=== PATIENT | male | born 1950 | race Caucasian/White ===

== ENCOUNTER → 2019-03-06 14:18 | Outpatient (CLI) | payer MEDICARE, SELFPAY ==
--- NOTE | 2019-03-06 | DI.RAD.S_ITS ---
PROCEDURE: XR KNEE LT 3V INDICATIONS: ARTHRITIS OF LEFT KNEE TECHNIQUE: 3 views of the knee were acquired. COMPARISON: None. FINDINGS: Bones: No fractures or dislocations. No suspicious bony lesions. Moderate medial compartment degenerative joint space narrowing. Mild lateral facet patellofemoral joint osteoarthritic change also. Soft tissues: No joint effusion. No suspicious soft tissue calcifications. 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 The most prominent degree of degenerative changes at the medial compartment. Dictated by: Omar Muse M.D. on 03/06/2019 at 14:55 Approved by: Omar Muse M.D. on 03/06/2019 at 14:56
== END ==
PROVIDERS: Visit Provider Family Medicine
DX: M17.12 Unilateral primary osteoarthritis, left knee (principal)
CPT/HCPCS: 73562

== ENCOUNTER 2019-04-05 10:26 | Emergency (ER) | payer MEDICARE, SELFPAY ==
[2019-04-05 10:30] VITALS: BP 116/76; PULSE 75; RESP 18; TEMP 36.9; O2SAT 97; BMI 23.0
--- NOTE | 2019-04-05 10:32 | ED_ITS ---
HPI - Extremity Injury (Lower) General Chief Complaint: Extremity Problem,Nontraumatic Stated Complaint: left knee injury possible infection Time Seen by Provider: 04/05/19 10:26 Source: patient Mode of arrival: Ambulatory Limitations: no limitations History of Present Illness HPI Narrative: 68-year-old male nonsmoker without significant contributory medical history presents for evaluation of a large, painful bump behind his left knee. He denies any redness, warmth or systemic suspicion of infection such as fever, chills nor nausea or vomiting. He denies any significant recent injury but does state that he had injured his knee few months ago with a suspected meniscal injury. His pain is worse with motion and improves with rest. He denies numbness, tingling or weakness. MD complaint: leg injury Onset (ago): month(s) Place: home Severity: moderate Relieving factors: rest Exacerbating factors: weight bearing and movement Other symptoms: none Related Data Home Medications Medication Instructions Recorded Confirmed ACETAMINOPHEN ER - 650 mg PO Q6HP #0 05/14/12 (TYLENOL 8 HOUR~) OXYCODONE HCL (OXECTA (NOT 5 mg PO Q8HR #0 05/14/12 AVAILABLE)) Sennosides A and B (SENNA 1 tab PO QDAY #0 05/14/12 CONCENTRATE) aspirin 325 mg PO QDAY #0 05/14/12 docusate sodium 250 mg PO QDAY #0 05/14/12 meloxicam [Mobic] 15 mg PO QDAY #0 05/14/12 ondansetron HCl [Zofran] 4 mg PO Q6HP #0 05/14/12 gabapentin 300 mg PO TID 04/05/19 04/05/19 ketorolac 04/05/19 prednisolone acetate 04/05/19 Previous Rx's Medication Instructions Recorded ketorolac 10 mg PO Q6H PRN #14 tab 04/05/19 Allergies Allergy/AdvReac Type Severity Reaction Status Date / Time No Known Drug Allergies Allergy Verified 04/05/19 10:36 Review of Systems Constitutional Constitutional: Denies chills, Denies fatigue, Denies fever(s), Denies frequent falls, Denies lethargy and Denies weakness Eyes Eyes: Denies change in vision, Denies eye discharge, Denies irritation and Denies loss of vision ENT Ears, Nose, Mouth, and Throat: Denies change in voice, Denies dizziness, Denies neck pain, Denies sore throat and Denies throat swelling Cardiovascular Cardiovascular: Denies chest pain, Denies irregular heart rhythm, Denies lightheadedness, Denies palpitations, Denies dyspnea, Denies dyspnea on exertion and Denies orthopnea Respiratory Respiratory: Denies cough, Denies dyspnea, Denies dyspnea on exertion and Denies wheezing Gastrointestinal Gastrointestinal: Denies abdominal pain, Denies change in bowel habits, Denies diarrhea, Denies nausea and Denies vomiting Genitourinary Genitourinary: Denies hematuria, Denies flank pain, Denies urinary incontinence and Denies urinary urgency Musculoskeletal Musculoskeletal: Denies back pain, Reports limited range of motion, Denies muscle weakness, Denies neck pain, Denies numbness and Denies tingling Integumentary/Breasts Skin/Breast: Denies pruritus, Denies erythema, Denies rash and Denies wounds Neurologic Neurologic: Denies behavioral changes, Denies confusion, Denies dizziness, Denies frequent falls, Denies loss of vision, Denies numbness, Denies tingling and Denies weakness Psychiatric Psychiatric: Denies anxiety, Denies behavioral changes, Denies confusion, Denies depression, Denies homicidal ideation and Denies suicidal ideation Endocrine Endocrine: Denies fatigue, Denies flushing and Denies palpitations Hematologic/Lymphatic Hematologic/Lymphatic: Denies easy bruising Allergic/Immunologic Allergic/Immunologic: Denies urticaria, Denies throat swelling and Denies wheezing Exam Narrative Exam Narrative: GEN: AOx3 and in mild distress EYES: Pupils are equal, round, and reactive to light and accommodation. Extraoccular muscles are intact bilaterally. There is no subconjunctival hemorrhage or exudate. CHEST: Lungs are clear to auscultation bilaterally and free of wheezes, rales, or rhonchi. Heart rate is regular rhythm, there are no murmurs, clicks, rubs, or gallops. There is no chest wall tenderness. ABD: Abdomen is soft and nontender. There is no guarding or rebound. Bowel sounds are normal in all 4 quadrants. There is no mass or organomegaly. EXT: Full but painful range of motion of left knee with a palpable mass behind left knee. No redness, warmth or effusion. No calf tenderness or swelling. Negative Homans sign. SKIN: Warm, pink, and dry. No erythema or rash Initial Vital Signs Initial Vital Signs: Vital Signs Temperature 98.4 F 04/05/19 10:30 Pulse Rate 75 04/05/19 10:30 Respiratory Rate 18 04/05/19 10:30 Blood Pressure 116/76 04/05/19 10:30 Pulse Oximetry 97 04/05/19 10:30 Course Orders Ordered: ED Orders 04/05/19 10:34 US periph venous low extrem lt Stat 04/05/19 10:55 Basic Metabolic Panel Stat C-Reactive Protein Quant Stat Complete Blood Count AUTO DIFF Stat Erythrocyte Sedimentation Rate Stat Vital Signs Vital signs: Vital Signs - 8 hr 04/05/19 12:00 Pulse Rate 60 Respiratory Rate 18 Blood Pressure [Left Arm] 160/79 H Pulse Oximetry 95 MDM - Extremity Injury (Lower) Lab Data Result diagrams: 04/05/19 10:55 04/05/19 10:55 Labs: Lab Results 04/05/19 04/05/19 Range/Units 10:55 10:55 WBC 7.1 (4.5-11.0) X10^3/uL RBC 4.28 L (4.5-5.9) X10^6/uL Hgb 14.1 (13.5-17.5) g/dL Hct 40.8 L (41-53) % MCV 95.2 (80-100) fL MCH 33.0 (26-34) PG MCHC 34.6 (30-36) % RDW 13.7 (11.6-14.8) % Plt Count 343 (150-400) X10^3/uL Neut % (Auto) 73.6 (50-75) % Lymph % (Auto) 17.8 L (25-40) % Ell[place] % (Auto) 5.8 (3-14) % Eos % (Auto) 1.5 L (2-4) % Baso % (Auto) 1.3 (0-2) % Neut # (Auto) 5200 (0011-9566) /uL Lymph # (Auto) 1300 (4752-2443) /uL Ellsworth # (Auto) 400 (0-900) /uL Eos # (Auto) 100 (0-450) /uL Baso # (Auto) 100 (0-100) /uL ESR 10 (0-15) MM/HR Sodium 137 (137-145) mmol/L Potassium 4.1 (3.4-5.1) mmol/L Chloride 103 (98-107) mmol/L Carbon Dioxide 24 (22-32) mmol/L BUN 12 (9-20) mg/dL Creatinine 0.60 L (0.66-1.25) mg/dL Estimated GFR > 60.0 (>60) mL/min BUN/Creatinine Ratio 20.0 (6-22) Glucose 147 H (80-110) mg/dL Calcium 9.7 (8.4-10.2) mg/dL C-Reactive Protein < 0.5 (<1.0) mg/dL Imaging Data US - DVT: Radiologist's Impression: [address] [address] Ultrasound Report Signed Patient: Turner Vance [facility]#: [id number] : 3Acct:[id number] Age/Sex: 68 / MDate of Service: 04/05/19 Loc: ED Accession Number: [id number] Procedure: US perip venous low extrem lt Ordering Provider: Roberto Valadez D.O. PROCEDURE: US PERIP VENOUS LOW EXTREM LT INDICATIONS: LEFT KNEE PAIN TECHNIQUE: Real-time imaging, as well as color and pulse Doppler interrogation, were performed of the lower extremity deep veins from the inguinal ligament to the popliteal fossa. COMPARISON: None. FINDINGS: The common femoral, femoral and popliteal veins are normally compressible, and free of intraluminal thrombus. Color and pulse Doppler demonstrate normal phasic intraluminal flow. There is normal augmentation response to distal compression maneuver. A prominent Patel cyst is identified within the popliteal fossa. IMPRESSION: 1. No evidence of deep vein thrombosis of the left lower extremity. 2. Prominent Patel cyst. Dictated by: Yanick Marrero M.D. on 04/05/2019 at 10:16 Discharge Plan Departure Patient Disposition: Home Clinical Impression: Patel's cyst of knee Qualifiers: Laterality: left Qualified Code(s): M71.22 - Synovial cyst of popliteal space [Patel], left knee Discharge Date/Time: 04/05/19 12:11 Instructions: Bakers Cyst Activity Restrictions/Additional Instructions: *You have been diagnosed with [patel cyst left knee, possible meniscal involvement] *What to do: *Take medications as directed *Follow up with your primary care provider in 2-3 days, call for an appointment. Let them know you were seen in the Emergency Department and that we ask that you be seen in follow up *Return to ER if you should have any new, worsening or concerning symptoms Prescriptions: New ketorolac 10 mg tablet 10 mg PO Q6H PRN (Reason: pain) Qty: 14 RF: 0 No Action ACETAMINOPHEN ER - (TYLENOL 8 HOUR~) 650 mg PO Q6HP Qty: 0 RF: 0 aspirin 325 MG tablet 325 mg PO QDAY Qty: 0 RF: 0 docusate sodium 250 MG capsule 250 mg PO QDAY Qty: 0 RF: 0 meloxicam [Mobic] 15 MG tablet 15 mg PO QDAY Qty: 0 RF: 0 ondansetron HCl [Zofran] 4 MG tablet 4 mg PO Q6HP Qty: 0 RF: 0 OXYCODONE HCL (OXECTA (NOT AVAILABLE)) 5 mg PO Q8HR Qty: 0 RF: 0 Sennosides A and B (SENNA CONCENTRATE) 1 tab PO QDAY Qty: 0 RF: 0 prednisolone acetate 1 % drops,suspension RF: 0 gabapentin 300 mg capsule 300 mg PO TID RF: 0 ketorolac 0.4 % drops RF: 0 Referrals: [facility] [Outside] Felicity Hutchins MD [Physician] -
[2019-04-05 11:06] LABS: Add Manual Diff / Slide Review NO; Basophils Absolute Auto 100 /uL (0-100); Basophils Percent Auto 1.3 % (0-2); Eosinophils Absolute Auto 100 /uL (0-450); Eosinophils Percent Auto 1.5 % (2-4); Hematocrit 40.8 % (41-53); Hemoglobin 14.1 g/dL (13.5-17.5); Lymphocytes Absolute Auto 1300 /uL (1100-4500); Lymphocytes Percent Auto 17.8 % (25-40); Mean Corpuscular HGB Conc 34.6 % (30-36); Mean Corpuscular Volume 95.2 fL (80-100); Monocytes Absolute Auto 400 /uL (0-900); Monocytes Percent Auto 5.8 % (3-14); Neutrophils Absolute Auto 5200 /uL (1500-7000); Neutrophils Percent Auto 73.6 % (50-75); Platelet Count 343 X10^3/uL (150-400); Red Blood Cell Count 4.28 X10^6/uL (4.5-5.9); Red Cell Distribution Width 13.7 % (11.6-14.8); White Blood Cell Count 7.1 X10^3/uL (4.5-11.0)
[2019-04-05 11:20] LABS: Erythrocyte Sedimentation Rate 10 MM/HR (0-15)
[2019-04-05 11:21] LABS: Blood Urea Nitrogen 12 mg/dL (9-20); Calcium 9.7 mg/dL (8.4-10.2); Carbon Dioxide 24 mmol/L (22-32); Chloride 103 mmol/L (98-107); Estimated Glomerular Filt Rate > 60.0 mL/min (>60); Glucose 147 mg/dL (80-110); HEMOLYSIS 15 (0-50); Potassium 4.1 mmol/L (3.4-5.1); Sodium 137 mmol/L (137-145)
[2019-04-05 11:22] LABS: C-Reactive Protein Quant < 0.5 mg/dL (<1.0)
[2019-04-05 12:00] VITALS: BP 160/79; PULSE 60; RESP 18; O2SAT 95
== END 2019-04-05 12:11 | disposition home or self-care (01) ==
PROVIDERS: Emergency Provider Emergency Medicine
DX: M71.22 Synovial cyst of popliteal space [Baker], left knee (principal)
CPT/HCPCS: 36415; 80048; 85025; 85651; 86140; 93971; 99283; 99284

== ENCOUNTER → 2019-12-10 11:04 | Outpatient (CLI) | payer MEDICARE, SELFPAY ==
--- NOTE | 2019-12-10 | DI.MRI.S_ITS ---
PROCEDURE: MR HEAD/BRAIN WO/W CON INDICATIONS: Abnormal weight loss TECHNIQUE: Noncontrast axial T1 spin echo, axial T2 fast spin echo, sagittal and axial FLAIR, coronal T2 fast spin echo, axial gradient echo, axial diffusion and ADC through the brain. After the administration of contrast, axial and coronal T1 spin echo with fat saturation through the brain. COMPARISON: None. FINDINGS: Image quality: Excellent. CSF spaces: Basal cisterns are patent. No extra-axial fluid collections. Ventricles are normal in size and shape. Brain: No midline shift. No intracranial bleeds or masses. No abnormal intracranial enhancement. There is cerebral volume loss for age. There is periventricular white matter chronic small vessel ischemic change. The brainstem appears normal. Diffusion-weighted images demonstrate no acute ischemic insults. No chronic ischemic insults. Normal intravascular flow voids are present. Skull and face: Calvarial marrow is normal in signal. Orbits appear normal. Note is made of bilateral lens replacements. Sinuses: There is moderate to severe right-sided maxillary sinus mucosal thickening. Moderate mucosal thickening is seen within the ethmoid air cells. No abnormal fluid is seen within the mastoid air cells. IMPRESSION: Unremarkable intracranial study for age, without masses or abnormal enhancement. No findings of acute or subacute infarction can be seen. Paranasal sinus disease is seen, which is worst within the right maxillary sinus. Dictated by: Joe Chinchilla M.D. on 12/10/2019 at 11:46 Approved by: Joe Chinchilla M.D. on 12/10/2019 at 11:47
== END ==
PROVIDERS: PCP Family Medicine; Referring Provider Family Medicine; Visit Provider Family Medicine
DX: R63.4 Abnormal weight loss (principal); J32.8 Other chronic sinusitis
CPT/HCPCS: 70553

== ENCOUNTER → 2020-03-20 13:37 | Outpatient (CLI) | payer MEDICARE, SELFPAY ==
[2020-03-20] MEDS: COVID-19 VACC #1, MRNA(MOD) 100 MCG/0.5 ML VIAL IM (13:41)
== END ==
PROVIDERS: PCP Family Medicine; Visit Provider Internal Medicine
DX: Z23 Encounter for immunization (principal)
CPT/HCPCS: 0011A; 91301

== ENCOUNTER → 2020-04-16 12:27 | Outpatient (CLI) | payer MEDICARE, SELFPAY ==
[2020-04-16] MEDS: COVID-19 VACC #2, MRNA(MOD) 100 MCG/0.5 ML VIAL IM (12:32)
== END ==
PROVIDERS: PCP Family Medicine; Visit Provider Internal Medicine
DX: Z23 Encounter for immunization (principal)
CPT/HCPCS: 0012A; 91301

== ENCOUNTER → 2020-06-05 09:14 | Outpatient (CLI) | payer MEDICARE, SELFPAY ==
[2020-06-05 20:28] LABS: Alanine Aminotransferase 23 IU/L (<50); Albumin 4.6 g/dL (3.5-5.0); Albumin Globulin Ratio 1.5 (1.0-2.8); Alkaline Phosphatase 84 U/L (38-126); Aspartate Aminotransferase 38 IU/L (17-59); BUN Creatinine Ratio 22.7 (6-22); Bilirubin Total 0.4 mg/dL (0.2-1.3); Blood Urea Nitrogen 15 mg/dL (9-20); Calcium 10.2 mg/dL (8.4-10.2); Carbon Dioxide 28 mmol/L (22-32); Chloride 104 mmol/L (98-107); Estimated Glomerular Filt Rate > 60.0 mL/min (>60); Globulin 3.1 g/dL (1.7-4.1); Glucose 107 mg/dL (80-110); HEMOLYSIS < 15 (0-50); Potassium 4.4 mmol/L (3.4-5.1); Sodium 139 mmol/L (137-145); Total Protein 7.7 g/dL (6.3-8.2)
[2020-06-05 20:58] LABS: Prostate Specific Antigen 1.32 ng/mL (0.10-4.00)
[2020-06-12 06:36] LABS: Percent Free Testosterone 3.64 % (1.50-4.20); Testosterone Free 14.97 ng/dL (5.00-21.00); Testosterone Total 411.2 ng/dL (264.0-916.0)
== END ==
PROVIDERS: PCP Family Medicine; Visit Provider Family Medicine
DX: F41.9 Anxiety disorder, unspecified (principal); N40.0 Benign prostatic hyperplasia without lower urinary tract symptoms; I10 Essential (primary) hypertension
CPT/HCPCS: 80053; 84153; 84402; 84403; 84443

== ENCOUNTER → 2021-01-18 14:20 | Outpatient (CLI) | payer MEDICARE, SELFPAY ==
[2021-01-19 20:34] LABS: Basophils Absolute Auto 100 /uL (0-100); Basophils Percent Auto 1.1 % (0-2); Eosinophils Absolute Auto 400 /uL (0-450); Eosinophils Percent Auto 5.1 % (2-4); Hematocrit 35.6 % (41-53); Hemoglobin 11.9 g/dL (13.5-17.5); Lymphocytes Absolute Auto 2000 /uL (1100-4500); Mean Corpuscular HGB Conc 33.4 % (30-36); Mean Corpuscular Hemoglobin 31.9 PG (26-34); Mean Corpuscular Volume 95.4 fL (80-100); Monocytes Absolute Auto 700 /uL (0-900); Monocytes Percent Auto 9.4 % (3-14); Neutrophils Absolute Auto 4300 /uL (1500-7000); Neutrophils Percent Auto 57.4 % (50-75); Platelet Count 491 X10^3/uL (150-400); Red Blood Cell Count 3.73 X10^6/uL (4.5-5.9); Red Cell Distribution Width 12.9 % (11.6-14.8); White Blood Cell Count 7.4 X10^3/uL (4.5-11.0)
[2021-01-19 21:12] LABS: Add Manual Diff / Slide Review SLIDE REVIEW
[2021-01-19 21:13] LABS: RBC Morphology Normal Morphology
== END ==
PROVIDERS: PCP Family Medicine; Visit Provider Family Medicine
DX: M54.9 Dorsalgia, unspecified (principal); G89.29 Other chronic pain; T81.40XA Infection following a procedure, unspecified, initial encounter
CPT/HCPCS: 85025

== ENCOUNTER → 2021-01-28 13:06 | Outpatient (CLI) | payer MEDICARE, SELFPAY ==
[2021-01-28 19:24] LABS: Add Manual Diff / Slide Review NO; Basophils Absolute Auto 100 /uL (0-100); Eosinophils Absolute Auto 300 /uL (0-450); Eosinophils Percent Auto 4.7 % (2-4); Hematocrit 38.9 % (41-53); Hemoglobin 13.2 g/dL (13.5-17.5); Lymphocytes Absolute Auto 1900 /uL (1100-4500); Lymphocytes Percent Auto 27.7 % (25-40); Mean Corpuscular HGB Conc 33.9 % (30-36); Mean Corpuscular Hemoglobin 32.4 PG (26-34); Mean Corpuscular Volume 95.5 fL (80-100); Monocytes Absolute Auto 600 /uL (0-900); Monocytes Percent Auto 8.9 % (3-14); Neutrophils Absolute Auto 4000 /uL (1500-7000); Neutrophils Percent Auto 57.7 % (50-75); Platelet Count 356 X10^3/uL (150-400); Red Blood Cell Count 4.07 X10^6/uL (4.5-5.9); Red Cell Distribution Width 13.3 % (11.6-14.8)
[2021-01-28 19:37] LABS: BUN Creatinine Ratio 21.5 (6-22); Blood Urea Nitrogen 14 mg/dL (9-20); Calcium 9.9 mg/dL (8.4-10.2); Carbon Dioxide 30 mmol/L (22-32); Chloride 101 mmol/L (98-107); Estimated Glomerular Filt Rate > 60.0 mL/min (>60); Glucose 92 mg/dL (80-110); HEMOLYSIS < 15 (0-50); Potassium 4.3 mmol/L (3.4-5.1); Sodium 137 mmol/L (137-145)
== END ==
PROVIDERS: Internal Medicine Infectious Disease; PCP Family Medicine
DX: M54.9 Dorsalgia, unspecified (principal); T81.49XA Infection following a procedure, other surgical site, initial encounter; G89.29 Other chronic pain
CPT/HCPCS: 80048; 85025

== ENCOUNTER → 2021-02-04 13:19 | Outpatient (CLI) | payer MEDICARE, SELFPAY ==
[2021-02-04 19:18] LABS: Add Manual Diff / Slide Review NO; Basophils Absolute Auto 0 /uL (0-100); Basophils Percent Auto 0.8 % (0-2); Eosinophils Absolute Auto 300 /uL (0-450); Eosinophils Percent Auto 6.1 % (2-4); Hematocrit 37.4 % (41-53); Hemoglobin 12.9 g/dL (13.5-17.5); Lymphocytes Absolute Auto 1300 /uL (1100-4500); Lymphocytes Percent Auto 22.7 % (25-40); Mean Corpuscular HGB Conc 34.4 % (30-36); Mean Corpuscular Hemoglobin 32.2 PG (26-34); Mean Corpuscular Volume 93.5 fL (80-100); Monocytes Absolute Auto 500 /uL (0-900); Monocytes Percent Auto 8.4 % (3-14); Neutrophils Absolute Auto 3400 /uL (1500-7000); Platelet Count 324 X10^3/uL (150-400); Red Cell Distribution Width 13.3 % (11.6-14.8); White Blood Cell Count 5.6 X10^3/uL (4.5-11.0)
[2021-02-04 19:23] LABS: BUN Creatinine Ratio 19.1 (6-22); Blood Urea Nitrogen 13 mg/dL (9-20); Calcium 10.4 mg/dL (8.4-10.2); Carbon Dioxide 31 mmol/L (22-32); Chloride 103 mmol/L (98-107); Estimated Glomerular Filt Rate > 60.0 mL/min (>60); Glucose 91 mg/dL (80-110); HEMOLYSIS 20 (0-50); Potassium 4.4 mmol/L (3.4-5.1); Sodium 137 mmol/L (137-145)
== END ==
PROVIDERS: Internal Medicine Infectious Disease; PCP Family Medicine
DX: M54.9 Dorsalgia, unspecified (principal); T81.49XA Infection following a procedure, other surgical site, initial encounter; G89.29 Other chronic pain
CPT/HCPCS: 80048; 85025

== ENCOUNTER → 2021-03-29 09:06 | Outpatient (CLI) | payer MEDICARE, SELFPAY ==
[2021-03-29 19:10] LABS: Alanine Aminotransferase 15 IU/L (<50); Albumin 4.3 g/dL (3.5-5.0); Albumin Globulin Ratio 1.4 (1.0-2.8); Alkaline Phosphatase 78 U/L (38-126); Aspartate Aminotransferase 26 IU/L (17-59); Bilirubin Total 0.4 mg/dL (0.2-1.3); Blood Urea Nitrogen 12 mg/dL (9-20); Calcium 9.7 mg/dL (8.4-10.2); Carbon Dioxide 31 mmol/L (22-32); Chloride 101 mmol/L (98-107); Cholesterol 206 mg/dL (140-199); Estimated Glomerular Filt Rate > 60.0 mL/min (>60); Gamma Glutamyl Transpeptidase 19 U/L (15-73); Glucose 110 mg/dL (80-110); HDL Cholesterol 66 mg/dL (40-60); HEMOLYSIS < 15 (0-50); LDL Cholesterol Calculated 127 mg/dL (<100); Potassium 4.8 mmol/L (3.4-5.1); Sodium 137 mmol/L (137-145); Total Protein 7.3 g/dL (6.3-8.2); Triglycerides 63 mg/dL (35-150)
[2021-03-29 19:32] LABS: Hematocrit 38.2 % (41-53); Hemoglobin 12.7 g/dL (13.5-17.5); Mean Corpuscular HGB Conc 33.2 % (30-36); Mean Corpuscular Hemoglobin 30.9 PG (26-34); Mean Corpuscular Volume 93.1 fL (80-100); Platelet Count 339 X10^3/uL (150-400); Red Blood Cell Count 4.11 X10^6/uL (4.5-5.9); Red Cell Distribution Width 14.1 % (11.6-14.8); White Blood Cell Count 5.2 X10^3/uL (4.5-11.0)
[2021-03-29 20:08] LABS: Neutrophils Absolute Manual 2652 /uL (3000-5900); RBC Morphology Normal Morphology; Total Cells Counted 100
== END ==
PROVIDERS: PCP Family Medicine; Visit Provider Family Medicine
DX: F10.20 Alcohol dependence, uncomplicated (principal); S99.912A Unspecified injury of left ankle, initial encounter; E78.5 Hyperlipidemia, unspecified; I10 Essential (primary) hypertension
CPT/HCPCS: 80053; 80061; 82977; 85025

== ENCOUNTER → 2021-06-14 08:20 | Outpatient (CLI) | payer MEDICARE, SELFPAY ==
[2021-06-14 09:48] LABS: Add Manual Diff / Slide Review NO; Basophils Absolute Auto 100 /uL (0-100); Basophils Percent Auto 0.8 % (0-2); Eosinophils Absolute Auto 200 /uL (0-450); Eosinophils Percent Auto 1.9 % (2-4); Hematocrit 38.4 % (41-53); Hemoglobin 13.3 g/dL (13.5-17.5); Lymphocytes Absolute Auto 1400 /uL (1100-4500); Lymphocytes Percent Auto 17.4 % (25-40); Mean Corpuscular HGB Conc 34.7 % (30-36); Mean Corpuscular Hemoglobin 33.2 PG (26-34); Mean Corpuscular Volume 95.6 fL (80-100); Monocytes Absolute Auto 600 /uL (0-900); Monocytes Percent Auto 7.2 % (3-14); Neutrophils Absolute Auto 5900 /uL (1500-7000); Neutrophils Percent Auto 72.7 % (50-75); Platelet Count 298 X10^3/uL (150-400); Red Blood Cell Count 4.01 X10^6/uL (4.5-5.9); Red Cell Distribution Width 14.7 % (11.6-14.8); White Blood Cell Count 8.1 X10^3/uL (4.5-11.0)
[2021-06-14 10:29] LABS: HEMOLYSIS < 15 (0-50); Iron 68 ug/dL (49-181)
[2021-06-14 10:40] LABS: Percent Iron Saturation 22 % (20-50); Total Iron Binding Capacity 316 ug/dL (261-462); Transferrin 248 mg/dL (206-381)
[2021-06-14 11:05] LABS: Ferritin 74 ng/mL (18-464)
== END ==
PROVIDERS: Physician Assistant; PCP Family Medicine; Referring Provider Family Medicine; Visit Provider Family Medicine
DX: J32.9 Chronic sinusitis, unspecified (principal); M25.572 Pain in left ankle and joints of left foot; D64.9 Anemia, unspecified
CPT/HCPCS: 36415; 82728; 83540; 83550; 85025

== ENCOUNTER → 2021-06-21 11:28 | Outpatient (CLI) | payer MEDICARE, SELFPAY ==
[2021-06-24 10:12] LABS: Fecal Immunochemical Test Negative (Negative)
== END ==
PROVIDERS: PCP Family Medicine; Visit Provider Physician Assistant
DX: Z12.11 Encounter for screening for malignant neoplasm of colon (principal); D64.9 Anemia, unspecified
CPT/HCPCS: 82274

== ENCOUNTER → 2021-07-19 10:46 | Outpatient (CLI) | payer MEDICARE, SELFPAY | PROVIDERS: PCP Family Medicine; Referring Provider Dermatology; Visit Provider Family Medicine | DX: T81.89XA Other complications of procedures, not elsewhere classified, initial encounter (principal); L97.825 Non-pressure chronic ulcer of other part of left lower leg with muscle involvement without evidence of necrosis; Z85.828 Personal history of other malignant neoplasm of skin; Z22.322 Carrier or suspected carrier of Methicillin resistant Staphylococcus aureus | CPT/HCPCS: 11042; 93922; 99204; 99213 ==

== ENCOUNTER → 2021-07-27 10:15 | Outpatient (CLI) | payer MEDICARE, SELFPAY | PROVIDERS: PCP Family Medicine; Referring Provider Family Medicine; Visit Provider Family Medicine | DX: T81.89XA Other complications of procedures, not elsewhere classified, initial encounter (principal); S81.802A Unspecified open wound, left lower leg, initial encounter; L08.9 Local infection of the skin and subcutaneous tissue, unspecified; R60.0 Localized edema | CPT/HCPCS: 11042; 87070; 87075; 87077; 87186; 87205; 99213 ==

== ENCOUNTER → 2021-08-03 11:43 | Outpatient (CLI) | payer MEDICARE, SELFPAY | PROVIDERS: PCP Family Medicine; Referring Provider Family Medicine; Visit Provider Family Medicine | DX: T81.89XA Other complications of procedures, not elsewhere classified, initial encounter (principal); S81.802A Unspecified open wound, left lower leg, initial encounter | CPT/HCPCS: 97607 ==

== ENCOUNTER → 2021-08-05 13:30 | Outpatient (CLI) | payer MEDICARE, SELFPAY | PROVIDERS: PCP Family Medicine; Referring Provider Family Medicine; Visit Provider Family Medicine | DX: T81.89XA Other complications of procedures, not elsewhere classified, initial encounter (principal); S81.802A Unspecified open wound, left lower leg, initial encounter; L08.89 Other specified local infections of the skin and subcutaneous tissue; B95.7 Other staphylococcus as the cause of diseases classified elsewhere; R60.0 Localized edema; Z85.828 Personal history of other malignant neoplasm of skin | CPT/HCPCS: 11042; 97607; 99214 ==

== ENCOUNTER → 2021-08-12 11:02 | Outpatient (CLI) | payer MEDICARE, SELFPAY | PROVIDERS: PCP Family Medicine; Referring Provider Dermatology; Visit Provider Family Medicine | DX: T81.89XA Other complications of procedures, not elsewhere classified, initial encounter (principal); S81.802A Unspecified open wound, left lower leg, initial encounter; R60.0 Localized edema; Z85.828 Personal history of other malignant neoplasm of skin | CPT/HCPCS: 11042 ==

== ENCOUNTER → 2021-08-19 11:31 | Outpatient (CLI) | payer MEDICARE, SELFPAY | PROVIDERS: PCP Family Medicine; Referring Provider Family Medicine; Visit Provider Family Medicine | DX: T81.89XA Other complications of procedures, not elsewhere classified, initial encounter (principal); I87.2 Venous insufficiency (chronic) (peripheral); L97.822 Non-pressure chronic ulcer of other part of left lower leg with fat layer exposed; L92.8 Other granulomatous disorders of the skin and subcutaneous tissue; R60.0 Localized edema | CPT/HCPCS: 11042; 99212 ==

== ENCOUNTER → 2021-08-23 13:04 | Outpatient (CLI) | payer MEDICARE, SELFPAY | PROVIDERS: PCP Family Medicine; Referring Provider Family Medicine; Visit Provider Family Medicine | DX: T81.89XA Other complications of procedures, not elsewhere classified, initial encounter (principal); I87.2 Venous insufficiency (chronic) (peripheral); L97.822 Non-pressure chronic ulcer of other part of left lower leg with fat layer exposed; R60.0 Localized edema; Z85.828 Personal history of other malignant neoplasm of skin | CPT/HCPCS: 15271; 99212; Q4137 ==

== ENCOUNTER → 2021-08-31 11:27 | Outpatient (CLI) | payer MEDICARE, SELFPAY | PROVIDERS: PCP Family Medicine; Referring Provider Dermatology; Visit Provider Family Medicine | DX: T81.89XA Other complications of procedures, not elsewhere classified, initial encounter (principal); I87.2 Venous insufficiency (chronic) (peripheral); L97.822 Non-pressure chronic ulcer of other part of left lower leg with fat layer exposed; R60.0 Localized edema; Z85.828 Personal history of other malignant neoplasm of skin | CPT/HCPCS: 15271; Q4137 ==

== ENCOUNTER → 2021-09-07 10:33 | Outpatient (CLI) | payer MEDICARE, SELFPAY | PROVIDERS: PCP Family Medicine; Referring Provider Family Medicine; Visit Provider Family Medicine | DX: I87.2 Venous insufficiency (chronic) (peripheral) (principal); R60.0 Localized edema; Z87.2 Personal history of diseases of the skin and subcutaneous tissue; Z85.828 Personal history of other malignant neoplasm of skin | CPT/HCPCS: 99212 ==

== ENCOUNTER → 2021-09-15 11:58 | Outpatient (CLI) | payer MEDICARE, SELFPAY ==
--- NOTE | 2021-09-15 12:00 | DI.MRI.S_ITS ---
PROCEDURE: MR BRAIN (IAC) WWO CON INDICATIONS: asymmetric hearing loss, right TECHNIQUE: Noncontrast sagittal T1 spin echo, axial FLAIR, axial gradient echo, axial diffusion and ADC through the brain. Axial thin-slice 3D CISS, coronal TruFISP, axial T1 spin echo with fat saturation through the internal auditory canals. After the administration of contrast, thin slice axial and coronal T1 spin echo with fat saturation through the internal auditory canals, and axial and coronal and sagittal T1 spin echo with fat saturation through the brain. COMPARISON: None. FINDINGS: Image quality: Excellent. Cerebellopontine angles: No cerebellopontine angle masses. Inner ear structures appear normally formed. No suspicious enhancement in the internal auditory canal or along the course of the 7th cranial nerve. CSF spaces: Ventricles are normal in size and shape. No extra-axial fluid collections. Basal cisterns are patent. Brain: Mild global cerebral volume loss and chronic microvascular ischemic change. No findings of mass effect or midline shift. No unexpected intracranial enhancement or susceptibility. Skull and face: Calvarial marrow signal is normal. Orbits appear normal. Sinuses: Sinuses and mastoids are clear. IMPRESSION: 1. No acute intracranial finding. 2. No findings to explain hearing loss. 3. No significant change from 12/10/2019 MRI brain. Dictated by: Ander Santana M.D. on 09/15/2021 at 14:38 Approved by: Ander Santana M.D. on 09/15/2021 at 14:43
== END ==
PROVIDERS: PCP Family Medicine; Referring Provider Family Medicine; Visit Provider Family Medicine
DX: H91.8X1 Other specified hearing loss, right ear (principal)
CPT/HCPCS: 70553

== ENCOUNTER → 2022-01-11 09:59 | Outpatient (CLI) | payer MEDICARE, SELFPAY ==
[2022-01-11 19:26] LABS: Add Manual Diff / Slide Review NO; Basophils Absolute Auto 100 /uL (0-100); Basophils Percent Auto 1.2 % (0-2); Eosinophils Absolute Auto 100 /uL (0-450); Lymphocytes Absolute Auto 1300 /uL (1100-4500); Lymphocytes Percent Auto 19.8 % (25-40); Mean Corpuscular HGB Conc 34.1 % (30-36); Mean Corpuscular Hemoglobin 33.7 PG (26-34); Mean Corpuscular Volume 98.8 fL (80-100); Monocytes Absolute Auto 500 /uL (0-900); Monocytes Percent Auto 7.1 % (3-14); Neutrophils Absolute Auto 4600 /uL (1500-7000); Neutrophils Percent Auto 69.9 % (50-75); Platelet Count 310 X10^3/uL (150-400); Red Blood Cell Count 4.15 X10^6/uL (4.5-5.9); Red Cell Distribution Width 13.4 % (11.6-14.8); White Blood Cell Count 6.6 X10^3/uL (4.5-11.0)
[2022-01-11 19:39] LABS: HEMOLYSIS < 15 (0-50); Iron 128 ug/dL (49-181)
[2022-01-11 19:44] LABS: Alanine Aminotransferase 28 IU/L (<50); Albumin 4.7 g/dL (3.5-5.0); Albumin Globulin Ratio 1.5 (1.0-2.8); Alkaline Phosphatase 87 U/L (38-126); Aspartate Aminotransferase 40 IU/L (17-59); Bilirubin Total 0.6 mg/dL (0.2-1.3); Blood Urea Nitrogen 15 mg/dL (9-20); Calcium 9.5 mg/dL (8.4-10.2); Carbon Dioxide 27 mmol/L (22-32); Chloride 99 mmol/L (98-107); Cholesterol 240 mg/dL (140-199); Estimated Glomerular Filt Rate > 60 mL/min (>60); Globulin 3.1 g/dL (1.7-4.1); Glucose 93 mg/dL (80-110); HDL Cholesterol 96 mg/dL (40-60); HEMOLYSIS < 15 (0-50); LDL Cholesterol Calculated 127 mg/dL (<100); Potassium 4.9 mmol/L (3.4-5.1); Sodium 136 mmol/L (137-145); Total Protein 7.8 g/dL (6.3-8.2); Triglycerides 83 mg/dL (35-150)
[2022-01-11 19:54] LABS: Percent Iron Saturation 37 % (20-50); Total Iron Binding Capacity 348 ug/dL (261-462); Transferrin 305 mg/dL (206-381)
[2022-01-11 20:36] LABS: Vitamin B12 640 pg/mL (239-931)
[2022-01-22 09:30] LABS: Percent Free Testosterone 2.83 % (1.50-4.20); Testosterone Free 9.17 ng/dL (5.00-21.00); Testosterone Total 323.9 ng/dL (264.0-916.0)
== END ==
PROVIDERS: PCP Family Medicine; Visit Provider Family Medicine
DX: Z00.00 Encounter for general adult medical examination without abnormal findings (principal); M94.262 Chondromalacia, left knee; I10 Essential (primary) hypertension; D64.9 Anemia, unspecified; R53.83 Other fatigue
CPT/HCPCS: 80053; 80061; 82607; 83540; 83550; 84402; 84403; 85025

== ENCOUNTER → 2022-03-16 12:17 | Outpatient (CLI) | payer MEDICARE, SELFPAY ==
--- NOTE | 2022-03-16 12:20 | DI.MRI.S_ITS ---
PROCEDURE: MR LUMBAR SPINE WO CON INDICATIONS: Lumbar radiculopathy TECHNIQUE: Noncontrast sagittal T1 spin echo and T2 fast echo, sagittal STIR, and T2 fast spin echo through the lumbar spine. In cases with scoliosis, additional coronal T2 fast spin echo may be performed. COMPARISON: None. FINDINGS: Suspected bilateral L5 pars defects. Grade 1 anterolisthesis of L5 on S1 measuring 1.1 cm. Retrolisthesis of L1 on L2 measuring 2 mm. Otherwise normal alignment. Vertebral body heights maintained. No suspicious focal marrow signal abnormality. Mild diffuse discogenic marrow edema (Modic type I degenerative change). Normal position and appearance of the conus. Regional soft tissues unremarkable. T12-L1: No spinal canal or neural foraminal stenosis. L1-L2: Moderate spinal canal stenosis due to posterior disc osteophyte complex flattening the ventral thecal sac and displacing the descending L2 nerve roots in both subarticular zones. Mild bilateral neural foraminal narrowing due to foraminal components of the disc material and facet hypertrophy. L2-L3: Mild spinal canal stenosis with disc material flattening the ventral thecal sac but not producing any significant displacement of the descending L3 nerve roots. N mild neural foraminal narrowing. L3-L4: Disc bulge flattens the ventral thecal sac. No mass effect on the traversing L4 nerve roots. Facet hypertrophy and foraminal components of the disc bulge combine to produce mild bilateral neural foraminal narrowing. L4-L5: Diffuse disc bulge and a superimposed broad-based posterior disc protrusion flatten and indent the ventral thecal sac. Displacement of the bilateral descending L5 nerve roots, right greater than left, within both subarticular zones. Moderate bilateral neural foraminal narrowing. L5-S1: Pseudo bulge caused by the listhesis produces displacement of the descending S1 nerve roots in both subarticular zones. Severe bilateral neural foraminal narrowing. 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 Moderate degenerative changes at L4-L5. Dictated by: Ander Santana M.D. on 03/16/2022 at 14:09 Approved by: Ander Santana M.D. on 03/16/2022 at 14:12
--- NOTE | 2022-03-16 12:20 | DI.MRI.S_ITS ---
PROCEDURE: MR CERVICAL SPINE WO CON INDICATIONS: Ataxic gait TECHNIQUE: Noncontrast sagittal T1 spin echo and T2 fast spin echo, sagittal STIR, foraminal oblique sagittal T2 fast spin echo, and axial gradient echo or T2 fast spin echo through the cervical spine. COMPARISON: None. FINDINGS: Degenerative straightening of the usual cervical lordosis. No listhesis. Discogenic marrow edema at the C5 and C6 vertebral bodies. No suspicious focal marrow signal abnormality. Normal morphology and signal intensity of the cervical cord. No syrinx. Prevertebral and paraspinous soft tissues demonstrate no acute abnormality. C2-C3: Mild right neural foraminal narrowing due to facet and uncovertebral hypertrophy. No neural foraminal narrowing on the left. Posterior disc-osteophyte complex flattens the ventral thecal sac. C3-C4: Severe left and moderate right neural foraminal narrowing due to facet and uncovertebral hypertrophy. Posterior disc osteophyte complex flattens the ventral cord and buckling of the ligamentum flavum effaces CSF dorsal to the cord creating overall mild to moderate spinal canal stenosis. C4-C5: Moderate spinal canal stenosis. Severe bilateral neural foraminal stenosis. C5-C6: Moderate spinal canal stenosis. Severe bilateral neural foraminal stenosis. C6-C7: Mild spinal canal stenosis. Moderate bilateral neural foraminal narrowing. C7-T1: Mild neural foraminal narrowing. No spinal canal stenosis. IMPRESSION: Overall moderate to severe multilevel multifactorial degenerative changes as detailed above. Dictated by: Ander Santana M.D. on 03/16/2022 at 13:38 Approved by: Ander Santana M.D. on 03/16/2022 at 13:58
== END ==
PROVIDERS: PCP Family Medicine; Referring Provider Anesthesiology; Visit Provider Anesthesiology
DX: M47.26 Other spondylosis with radiculopathy, lumbar region (principal); M43.17 Spondylolisthesis, lumbosacral region; M48.07 Spinal stenosis, lumbosacral region; M47.812 Spondylosis without myelopathy or radiculopathy, cervical region; M48.02 Spinal stenosis, cervical region; R27.0 Ataxia, unspecified
CPT/HCPCS: 72141; 72148

== ENCOUNTER → 2022-07-22 15:33 | Outpatient (CLI) | payer MEDICARE, SELFPAY ==
--- NOTE | 2022-07-22 15:35 | DI.MRI.S_ITS ---
PROCEDURE: MR KNEE LT WO CON INDICATIONS: persistent swelling and pain left knee TECHNIQUE: Noncontrast sagittal PD fast spin echo and T2 fast spin echo with fat saturation, sagittal 3-D FLASH with fat saturation; coronal T1 spin echo and PD fast spin echo with fat saturation, and axial PD fast spin echo with fat saturation through the knee. COMPARISON: [facility] [place], CR, XR KNEE 4+ VIEWS LEFT, 04/09/2021, 13:22. FINDINGS: Image quality: Excellent. Menisci: There is linear horizontal and amorphous high signal intensity within the inner, middle, and peripheral thirds of the anterior horn, body, and posterior horn medial meniscus, demonstrating superior and inferior articular surface extension, indicating complex tearing. Truncation of the free edge of the medial meniscal body is present, indicating radial tearing. Linear horizontal high T2 signal intensity traverses the inner, middle, and peripheral thirds of the posterior horn lateral meniscus, demonstrating inferior articular surface extension, indicating horizontal tearing. Cruciate ligaments: The anterior and posterior cruciate ligaments appear intact. Medial structures: The medial collateral ligament appears intact. Visualized portions of the pes anserinus tendons appear normal. No abnormal bursal fluid. Lateral structures: The lateral collateral ligament demonstrates moderate T2 signal elevation at the femoral origin. The long and short heads of the biceps femoris tendon appear intact. The popliteus tendon appears normal. Iliotibial band appears normal. Anterior structures: The quadriceps and patellar tendons appear intact. Mild T2 signal elevation within the quadriceps and patellar tendons at the patellar insertion sites. Patellar alignment is normal. No femoral trochlear dysplasia or ventral trochlear prominence. No edema in the infrapatellar fat pad. Bones and cartilage: No bone marrow contusions or fractures. There is moderate subchondral degenerative marrow edema within the weight-bearing aspects of the medial femoral condyle and medial tibial plateau. There is moderate subchondral degenerative marrow edema within the central tibial plateau. Severe articular cartilage loss diffusely overlies the weight-bearing aspects of the medial femoral condyle and medial tibial plateau. Mild articular cartilage loss diffusely overlies the weight-bearing aspects of the lateral femoral condyle and lateral tibial plateau. Mild articular cartilage loss overlies the medial and lateral patellar facets as well as the medial and lateral femoral trochlea. Joint space: There is a moderate knee joint effusion and a moderate Patel's cyst with moderate adjacent fluid, consistent with recent rupture. Normal appearing synovial plicae are incidentally noted. IMPRESSION: 1. Tricompartmental osteoarthritis with associated articular cartilage loss. 2. Medial and lateral meniscal tearing. 3. Knee joint effusion and recently ruptured Patel's cyst. 4. Partial-thickness lateral collateral ligament tear. 5. Mild patellar tendinitis. Dictated by: Josefina Muro M.D. on 07/25/2022 at 8:55 Approved by: Josefina Muro M.D. on 07/25/2022 at 8:59
== END ==
PROVIDERS: PCP Family Medicine; Referring Provider Family Medicine; Visit Provider Family Medicine
DX: S83.282A Other tear of lateral meniscus, current injury, left knee, initial encounter; S83.422A Sprain of lateral collateral ligament of left knee, initial encounter; S83.242A Other tear of medial meniscus, current injury, left knee, initial encounter; M17.12 Unilateral primary osteoarthritis, left knee; M25.562 Pain in left knee; M25.462 Effusion, left knee; M66.0 Rupture of popliteal cyst; M76.52 Patellar tendinitis, left knee
CPT/HCPCS: 73721

== ENCOUNTER → 2023-02-21 11:32 | Outpatient (CLI) | payer MEDICARE, SELFPAY ==
[2023-02-21 20:27] LABS: Add Manual Diff / Slide Review NO; Basophils Absolute Auto 100 /uL (0-100); Basophils Percent Auto 1.4 % (0-2); Eosinophils Absolute Auto 200 /uL (0-450); Eosinophils Percent Auto 3.8 % (2-4); Hematocrit 38.7 % (41-53); Hemoglobin 13.2 g/dL (13.5-17.5); Lymphocytes Absolute Auto 1400 /uL (1100-4500); Lymphocytes Percent Auto 25.6 % (25-40); Mean Corpuscular Hemoglobin 34.1 PG (26-34); Monocytes Absolute Auto 500 /uL (0-900); Monocytes Percent Auto 9.8 % (3-14); Neutrophils Absolute Auto 3200 /uL (1500-7000); Neutrophils Percent Auto 59.4 % (50-75); Platelet Count 324 X10^3/uL (150-400); Red Blood Cell Count 3.87 X10^6/uL (4.5-5.9); Red Cell Distribution Width 13.6 % (11.6-14.8); White Blood Cell Count 5.4 X10^3/uL (4.5-11.0)
[2023-02-21 20:36] LABS: Alanine Aminotransferase 38 IU/L (<50); Albumin 4.2 g/dL (3.5-5.0); Albumin Globulin Ratio 1.4 (1.0-2.8); Alkaline Phosphatase 78 U/L (38-126); Aspartate Aminotransferase 44 IU/L (17-59); BUN Creatinine Ratio 22.2 (6-22); Bilirubin Total 0.6 mg/dL (0.2-1.3); Blood Urea Nitrogen 16 mg/dL (9-20); C-Reactive Protein Quant < 0.5 mg/dL (<1.0); Calcium 9.7 mg/dL (8.4-10.2); Carbon Dioxide 27 mmol/L (22-32); Chloride 99 mmol/L (98-107); Estimated Glomerular Filt Rate > 60 mL/min (>60); Globulin 3.1 g/dL (1.7-4.1); Glucose 95 mg/dL (80-110); HEMOLYSIS < 15 (0-50); Potassium 4.3 mmol/L (3.4-5.1); Sodium 133 mmol/L (137-145); Total Protein 7.3 g/dL (6.3-8.2); Uric Acid 4.8 mg/dL (3.5-8.5)
[2023-02-21 20:40] LABS: Rheumatoid Factor < 8.6 IU/mL (<12.0)
[2023-02-21 20:51] LABS: Erythrocyte Sedimentation Rate 14 MM/HR (0-15)
[2023-02-21 21:02] LABS: Prostate Specific Antigen Scrn 1.34 ng/mL (0.1-4.0)
[2023-02-21 21:04] LABS: Vitamin D 25 Hydroxy (D3) 29.1 ng/mL (30.0-100.0)
[2023-02-21 21:20] LABS: Vitamin B12 Reflex MMA if <400 872 pg/mL (239-931)
[2023-02-23 14:44] LABS: Alpha-1-Globulin 0.2 g/dL (0.0-0.4); Alpha-2-Globulin 0.6 g/dL (0.4-1.0); Globulin Total 2.9 g/dL (2.2-3.9); Protein, Total 6.9 g/dL (6.0-8.5)
[2023-02-23 19:06] LABS: Free Kappa Lt Chains, Serum 20.7 mg/L (3.3-19.4); Free Lambda Lt Chains,Serum 13.5 mg/L (5.7-26.3)
[2023-02-26 17:17] LABS: ANA Screen, IFA Negative (.)
== END ==
PROVIDERS: PCP Family Medicine; Visit Provider Family Medicine
DX: Z12.5 Encounter for screening for malignant neoplasm of prostate (principal); G62.9 Polyneuropathy, unspecified; E55.9 Vitamin D deficiency, unspecified; M25.50 Pain in unspecified joint; M89.8X9 Other specified disorders of bone, unspecified site
CPT/HCPCS: 80053; 82306; 82607; 83883; 84155; 84165; 84550; 85025; 85651; 86038; 86140; 86430; G0103

== ENCOUNTER → 2023-09-01 08:34 | Outpatient (CLI) | payer MEDICARE, SELFPAY ==
[2023-09-01 19:01] LABS: Add Manual Diff / Slide Review NO; Basophils Absolute Auto 100 /uL (0-100); Basophils Percent Auto 0.9 % (0-2); Eosinophils Absolute Auto 100 /uL (0-450); Eosinophils Percent Auto 2.1 % (2-4); Hemoglobin 13.6 g/dL (13.5-17.5); Lymphocytes Absolute Auto 1200 /uL (1100-4500); Mean Corpuscular Hemoglobin 34.2 PG (26-34); Mean Corpuscular Volume 100.5 fL (80-100); Monocytes Absolute Auto 600 /uL (0-900); Monocytes Percent Auto 10.5 % (3-14); Neutrophils Absolute Auto 3800 /uL (1500-7000); Neutrophils Percent Auto 65.5 % (50-75); Platelet Count 273 X10^3/uL (150-400); Red Blood Cell Count 3.98 X10^6/uL (4.5-5.9); Red Cell Distribution Width 14.1 % (11.6-14.8); White Blood Cell Count 5.8 X10^3/uL (4.5-11.0)
[2023-09-01 19:16] LABS: Alanine Aminotransferase 42 IU/L (<50); Albumin 4.5 g/dL (3.5-5.0); Albumin Globulin Ratio 1.4 (1.0-2.8); Alkaline Phosphatase 108 U/L (38-126); Aspartate Aminotransferase 55 IU/L (17-59); BUN Creatinine Ratio 23.9 (6-22); Bilirubin Total 0.8 mg/dL (0.2-1.3); Blood Urea Nitrogen 17 mg/dL (9-20); Calcium 9.8 mg/dL (8.4-10.2); Carbon Dioxide 24 mmol/L (22-32); Chloride 104 mmol/L (98-107); Estimated Glomerular Filt Rate > 60 mL/min (>60); Globulin 3.2 g/dL (1.7-4.1); Glucose 101 mg/dL (80-110); HEMOLYSIS < 15 (0-50); Potassium 4.3 mmol/L (3.4-5.1); Sodium 136 mmol/L (137-145); Total Protein 7.7 g/dL (6.3-8.2)
[2023-09-01 19:49] LABS: Ferritin 115 ng/mL (18-464)
[2023-09-01 20:02] LABS: HEMOLYSIS < 15 (0-50); Iron 112 ug/dL (49-181)
[2023-09-01 20:16] LABS: Percent Iron Saturation 38 % (20-50); Total Iron Binding Capacity 294 ug/dL (261-462); Transferrin 251 mg/dL (206-381)
[2023-09-01 20:29] LABS: MRSA (Nasal) PCR NOT DETECTED (Not Detect)
== END ==
PROVIDERS: PCP Family Medicine; Visit Provider Family Medicine
DX: G62.9 Polyneuropathy, unspecified (principal); Z86.2 Personal history of diseases of the blood and blood-forming organs and certain disorders involving the immune mechanism; M17.9 Osteoarthritis of knee, unspecified; Z01.812 Encounter for preprocedural laboratory examination; F10.20 Alcohol dependence, uncomplicated
CPT/HCPCS: 80053; 82728; 83540; 83550; 85025; 87797

== ENCOUNTER → 2024-08-06 10:00 | Outpatient (CLI) | payer MEDICARE, SELFPAY ==
[2024-08-06 19:25] LABS: Add Manual Diff / Slide Review NO; Basophils Absolute Auto 100 /uL (0-100); Eosinophils Absolute Auto 200 /uL (0-450); Eosinophils Percent Auto 4.2 % (2-4); Hematocrit 39.8 % (41-53); Hemoglobin 13.9 g/dL (13.5-17.5); Lymphocytes Absolute Auto 1100 /uL (1100-4500); Lymphocytes Percent Auto 21.3 % (25-40); Mean Corpuscular HGB Conc 34.8 % (30-36); Mean Corpuscular Hemoglobin 34.7 PG (26-34); Mean Corpuscular Volume 99.5 fL (80-100); Monocytes Absolute Auto 500 /uL (0-900); Monocytes Percent Auto 9.5 % (3-14); Neutrophils Absolute Auto 3400 /uL (1500-7000); Platelet Count 287 X10^3/uL (150-400); White Blood Cell Count 5.4 X10^3/uL (4.5-11.0)
[2024-08-06 19:32] LABS: Alanine Aminotransferase 34 IU/L (<50); Albumin 4.5 g/dL (3.5-5.0); Albumin Globulin Ratio 1.6 (1.0-2.8); Alkaline Phosphatase 94 U/L (38-126); Aspartate Aminotransferase 58 IU/L (17-59); BUN Creatinine Ratio 22.2 (6-22); Blood Urea Nitrogen 16 mg/dL (9-20); Calcium 9.9 mg/dL (8.4-10.2); Carbon Dioxide 26 mmol/L (22-32); Chloride 101 mmol/L (98-107); Cholesterol 238 mg/dL (140-199); Estimated Glomerular Filt Rate > 60 mL/min (>60); Globulin 2.8 g/dL (1.7-4.1); Glucose 109 mg/dL (70-99); HDL Cholesterol 108 mg/dL (40-60); HEMOLYSIS < 15 (0-50); LDL Cholesterol Calculated 108 mg/dL (<100); Potassium 4.8 mmol/L (3.4-5.1); Sodium 134 mmol/L (137-145); Total Protein 7.3 g/dL (6.3-8.2); Triglycerides 108 mg/dL (35-150)
[2024-08-06 19:58] LABS: TSH w/ Reflex to FT4 1.68 uIU/mL (0.47-4.68)
[2024-08-06 20:00] LABS: Prostate Specific Antigen Scrn 1.84 ng/mL (0.1-4.0)
[2024-08-06 20:17] LABS: Vitamin B12 735 pg/mL (239-931)
== END ==
PROVIDERS: PCP Family Medicine; Visit Provider Family Medicine
DX: F10.20 Alcohol dependence, uncomplicated (principal); Z12.5 Encounter for screening for malignant neoplasm of prostate; D64.9 Anemia, unspecified; R20.0 Anesthesia of skin; E78.5 Hyperlipidemia, unspecified; F31.81 Bipolar II disorder; I10 Essential (primary) hypertension; E55.9 Vitamin D deficiency, unspecified; G62.9 Polyneuropathy, unspecified; G62.1 Alcoholic polyneuropathy
CPT/HCPCS: 80053; 80061; 82607; 84155; 84165; 84443; 85025; G0103

== ENCOUNTER → 2024-12-10 13:23 | Outpatient (CLI) | payer MEDICARE, SELFPAY ==
[2024-12-10 18:56] LABS: Add Manual Diff / Slide Review NO; Hematocrit 42.0 % (41-53); Hemoglobin 14.4 g/dL (13.5-17.5); Lymphocytes Absolute Auto 1600 /uL (1100-4500); Mean Corpuscular HGB Conc 34.3 % (30-36); Mean Corpuscular Hemoglobin 32.3 PG (26-34); Mean Corpuscular Volume 94.2 fL (80-100); Platelet Count 392 X10^3/uL (150-400)
[2024-12-10 18:57] LABS: HEMOLYSIS < 15 (0-50); Iron 105 ug/dL (49-181)
[2024-12-10 19:09] LABS: Percent Iron Saturation 33 % (20-50); Total Iron Binding Capacity 323 ug/dL (261-462)
[2024-12-10 19:20] LABS: Transferrin 298 mg/dL (206-381)
[2024-12-10 19:53] LABS: Vitamin B12 632 pg/mL (239-931)
== END ==
PROVIDERS: PCP Family Medicine; Visit Provider Family Medicine
DX: D64.9 Anemia, unspecified (principal); F10.20 Alcohol dependence, uncomplicated; R19.5 Other fecal abnormalities
CPT/HCPCS: 82607; 83540; 83550; 85025